=== PATIENT | female | born 1945 | race Caucasian/White ===

== ENCOUNTER → 2017-02-21 | Outpatient (CLI) | payer OTHER | END | disposition home or self-care (01) | LOC: CFH 08:24 | PROVIDERS: ATTEND Internal Medicine Critical Care Medicine | DX: Z12.2 Encounter for screening for malignant neoplasm of respiratory organs (principal); M40.295 Other kyphosis, thoracolumbar region; R91.1 Solitary pulmonary nodule; I77.810 Thoracic aortic ectasia; Z87.891 Personal history of nicotine dependence | CPT/HCPCS: 71020; G0297 ==

== ENCOUNTER → 2017-03-08 | Outpatient (CLI) | payer OTHER | END | disposition home or self-care (01) | LOC: PETCFH 09:14 | PROVIDERS: ATTEND Internal Medicine Critical Care Medicine | DX: R91.1 Solitary pulmonary nodule (principal) | CPT/HCPCS: 78815; A9552 ==

== ENCOUNTER 2017-04-21 10:53 | Emergency (ER) | payer OTHER ==
[~2017-04-21] VITALS: Ht 170.2 cm; Wt 114.0 kg
[2017-04-21] MEDS ORDERED: SODIUM CHLORIDE FLUSH 10ML SYR IVF ONE (12:00)
[2017-04-21 12:13] LABS: HEMATOCRIT 44.8 % (34.6-47.8); HEMOGLOBIN 14.5 g/dL (11.7-16.4); WHITE BLOOD COUNT 7.1 x10^3/uL (3.4-10)
[2017-04-21 12:23] VITALS: BP 158/81
[2017-04-21 12:27] LABS: BLOOD UREA NITROGEN 16 mg/dL (7-18)
[2017-04-21 12:41] LABS: ASPARTATE AMINO TRANSFERASE 20 U/L (15-37)
== END 2017-04-21 13:05 | disposition home or self-care (01) ==
LOC: ED 11:20
DX: R10.32 Left lower quadrant pain (principal); G89.29 Other chronic pain; E78.5 Hyperlipidemia, unspecified; J44.9 Chronic obstructive pulmonary disease, unspecified; E78.00 Pure hypercholesterolemia, unspecified; Z87.891 Personal history of nicotine dependence
CPT/HCPCS: 36415; 74022; 80053; 83690; 85025; 85610; 93005; 99285

== ENCOUNTER → 2017-05-06 | Outpatient (CLI) | payer OTHER | END | disposition home or self-care (01) | LOC: CFH 09:17 | PROVIDERS: ATTEND Internal Medicine Cardiovascular Disease | DX: I08.0 Rheumatic disorders of both mitral and aortic valves (principal); E78.5 Hyperlipidemia, unspecified; I71.2 Thoracic aortic aneurysm, without rupture | CPT/HCPCS: 93306 ==

== ENCOUNTER 2017-05-09 06:04 | Day surgery (SDC) | payer OTHER ==
[~2017-05-09] VITALS: Ht 170.2 cm; Wt 112.3 kg
[2017-05-09] MEDS ORDERED: SODIUM CHLORIDE 0.9% 1,000 ML IV SCH (07:09)
[2017-05-09 07:31] VITALS: BP 154/92
[2017-05-09] MEDS ORDERED: FLUT1BLS INH (07:37)
[2017-05-09] MEDS ORDERED: ALBU18HF INH (07:37)
[2017-05-09] MEDS ORDERED: FENO54TA17 PO (07:37)
[2017-05-09] MEDS ORDERED: ATOR40TA78 PO (07:37)
[2017-05-09] MEDS ORDERED: ASPI-496 PO (07:38)
[2017-05-09] MEDS ORDERED: NALOXONE 1 MG/ML, 2ML ONE (08:55)
[2017-05-09] MEDS ORDERED: MIDAZOLAM 1 MG/ML, 5ML ONE (08:55)
[2017-05-09] MEDS ORDERED: FLUMAZENIL 0.1 MG/1 ML, 5ML ONE (08:55)
[2017-05-09] MEDS ORDERED: FENTANYL PF 100 MCG/2ML ONE (08:55)
[2017-05-09] MEDS ORDERED: LIDOCAINE 1%, 20ML ONE (09:29)
== END 2017-05-09 12:55 | disposition home or self-care (01) ==
LOC: OUT 06:04
PROVIDERS: ATTEND Internal Medicine Critical Care Medicine
DX: C34.11 Malignant neoplasm of upper lobe, right bronchus or lung (principal); M89.8X2 Other specified disorders of bone, upper arm; F41.9 Anxiety disorder, unspecified; F32.9 Major depressive disorder, single episode, unspecified; I10 Essential (primary) hypertension; J44.9 Chronic obstructive pulmonary disease, unspecified; Z87.891 Personal history of nicotine dependence
CPT/HCPCS: 20220; 32405; 71010; 77012; 88305; 88307; 88311; 88342; 99156; 99157; J2250; J3010; J3490; J7030; G0461; J2310

== ENCOUNTER 2017-07-24 05:01 | Emergency (ER) | payer OTHER ==
[~2017-07-24 05:01] MED LIST: ALBU18HF INH; ASPI-496 PO; ATOR40TA78 PO; CHOL2000 PO; FENO54TA17 PO; FLUT1BLS INH
[2017-07-24] MEDS ORDERED: SODIUM CHLORIDE 0.9% 1,000 ML IV ONE (05:49)
[2017-07-24] MEDS ORDERED: morphine SULFATE 10 MG/ML, 1ML ONE (05:51)
[2017-07-24] MEDS ORDERED: ONDANSETRON 2MG/ML, 2ML ONE (05:51)
[2017-07-24 05:56] LABS: HEMATOCRIT 43.5 % (34.6-47.8); WHITE BLOOD COUNT 6.7 x10^3/uL (3.4-10)
[2017-07-24] MEDS ORDERED: MORPHINE SULFATE 4 MG/ML, 1ML IVPush PRN (06:00)
[2017-07-24] MEDS ORDERED: ONDANSETRON 2MG/ML, 2ML IVPush ONE (06:00)
[2017-07-24 06:10] LABS: ASPARTATE AMINO TRANSFERASE 16 U/L (15-37); BLOOD UREA NITROGEN 36 mg/dL (7-18)
[2017-07-24] MEDS ORDERED: PLEASE ENTER HEIGHT AND WEIGHT MC SCH (08:00)
[2017-07-24] MEDS ORDERED: SODIUM CHLORIDE 0.9% 1,000ML IVBOLUS ONE (08:00)
[2017-07-24 08:15] VITALS: BP 110/72
[2017-07-24 09:13] LABS: PATH.CAST-FLAG NOT PRESENT; SPERM-FLAG NOT PRESENT; SRC-FLAG NOT PRESENT; XTAL-FLAG NOT PRESENT; YLC-FLAG NOT PRESENT
== END 2017-07-24 11:07 | disposition home or self-care (01) ==
LOC: ED 05:32
DX: R10.32 Left lower quadrant pain (principal); R10.12 Left upper quadrant pain; C56.9 Malignant neoplasm of unspecified ovary; C78.00 Secondary malignant neoplasm of unspecified lung; E78.5 Hyperlipidemia, unspecified; J44.9 Chronic obstructive pulmonary disease, unspecified; M19.90 Unspecified osteoarthritis, unspecified site; Z90.49 Acquired absence of other specified parts of digestive tract
CPT/HCPCS: 36415; 74020; 80053; 81001; 83605; 83690; 85025; 85610; 87086; 96361; 96374; 96375; 99285; J2405; J7030

== ENCOUNTER 2017-07-29 10:22 | Emergency (ER) | payer OTHER ==
[~2017-07-29] VITALS: Ht 167.6 cm; Wt 106.0 kg
[~2017-07-29 10:22] MED LIST changes: +HYDR-3237 PO; +LISI-170 PO
[2017-07-29] MEDS ORDERED: DIPHENHYDRAMINE 25 MG CAPSULE PO ONE (12:00)
[2017-07-29 12:56] VITALS: BP 143/73
== END 2017-07-29 13:40 | disposition home or self-care (01) ==
LOC: ED 12:32
DX: T50.995A Adverse effect of other drugs, medicaments and biological substances, initial encounter (principal); Y92.89 Other specified places as the place of occurrence of the external cause; J44.9 Chronic obstructive pulmonary disease, unspecified; E78.00 Pure hypercholesterolemia, unspecified; E78.5 Hyperlipidemia, unspecified; Z85.118 Personal history of other malignant neoplasm of bronchus and lung
CPT/HCPCS: 99283

== ENCOUNTER → 2017-08-14 | Outpatient (CLI) | payer OTHER ==
[~2017-08-14] MED LIST changes: +OMNIPAQUE 350 MG/ML, 100ML BOTTLE ONE
== END | disposition home or self-care (01) ==
LOC: CFH 10:34
PROVIDERS: ATTEND Specialist
DX: I26.99 Other pulmonary embolism without acute cor pulmonale (principal); C78.00 Secondary malignant neoplasm of unspecified lung
CPT/HCPCS: 71275; Q9967

== ENCOUNTER 2017-09-03 13:59 | Inpatient (IN) | payer OTHER ==
[2017-09-03] VITALS (11 sets, daily range): BP systolic 88–126; BP diastolic 46–73
[~2017-09-03] VITALS: Ht 167.6 cm; Wt 105.0 kg
[~2017-09-03 13:59] MED LIST changes: -OMNIPAQUE 350 MG/ML, 100ML BOTTLE ONE; +POTA10TA11 PO; +POTA99TA24 PO; +WARF4TAB PO
[2017-09-03] MEDS ORDERED: SODIUM CHLORIDE 0.9% 1,000ML IVBOLUS ONE (14:30)
[2017-09-03] MEDS ORDERED: SODIUM CHLORIDE FLUSH 10ML SYR IVF ONE (14:30)
[2017-09-03 14:39] LABS: BASOPHILS # (AUTO) 0.02 x10^3/uL (0-0.1); BASOPHILS % (AUTO) 0 % (0-1); EOSINOPHILS # (AUTO) 0.01 x10^3/uL (0-0.4); EOSINOPHILS % (AUTO) 0 % (1-7); LYMPHOCYTES # (AUTO) 4.34 x10^3/uL (1-3.4); LYMPHOCYTES % (AUTO) 53 % (22-44); MD NO; MEAN CORPUSCULAR HEMOGLOBIN 31.5 pg (27.0-34.8); MEAN CORPUSCULAR HGB CONC 33.9 g/dL (32.4-35.8); MEAN CORPUSCULAR VOLUME 92.7 fL (80-100); MEAN PLATELET VOLUME 9.3 fL (7.4-10.4); MONOCYTES # (AUTO) 0.04 x10^3/uL (0.2-0.8); MONOCYTES % (AUTO) 0 % (2-9); NEUTROPHILS # (AUTO) 3.85 x10^3/uL (1.8-6.8); NEUTROPHILS % (AUTO) 47 % (42-75); PLATELET COUNT 288 x10^3/uL (130-400); RED BLOOD COUNT 4.36 x10^6/uL (3.82-5.3); RED CELL DISTRIBUTION WIDTH 14.8 % (9.6-15.2)
[2017-09-03 14:45] LABS: ALBUMIN 3.4 g/dL (3.4-5.0); ANION GAP 14 mmol/L (5-15); CALCIUM 9.3 mg/dL (8.5-10.1); CHLORIDE 95 mmol/L (98-107)
[2017-09-03 14:48] LABS: ALANINE AMINOTRANSFERASE 37 U/L (12-78); ALKALINE PHOSPHATASE 55 U/L (45-117); BILIRUBIN,TOTAL 1.1 mg/dL (0.2-1.0); CREATININE 1.62 mg/dL (0.55-1.02); TOTAL PROTEIN 7.2 g/dL (6.4-8.2)
[2017-09-03 15:00] LABS: INTERNATIONAL NORMALIZED RATIO 8.6 (0.93-1.1); PROTHROMBIN TIME 85.7 Seconds (9.6-11.5)
[2017-09-03] MEDS ORDERED: PHYTONADIONE 10 MG in SODIUM CHLORIDE 0.9% 50 ML IV ONE (15:30)
[2017-09-03] MEDS ORDERED: ASPI-496 PO (15:56)
[2017-09-03] MEDS ORDERED: CHOL100011 PO (15:56)
[2017-09-03] MEDS ORDERED: MULT-658 PO (15:56)
[2017-09-03] MEDS ORDERED: CALCIUM PO (15:56)
[2017-09-03] MEDS ORDERED: LISI-170 PO (15:56)
[2017-09-03] MEDS ORDERED: FLUT9.9S NAS (15:56)
[2017-09-03] MEDS ORDERED: WARF4TAB7 PO (15:56)
[2017-09-03] MEDS ORDERED: FLUT1BLS INH (15:56)
[2017-09-03] MEDS ORDERED: PANTOPRAZOLE 80 MG in SODIUM CHLORIDE 0.9% 50 ML IVPB ONE (17:25)
[2017-09-03] MEDS ORDERED: ESOMEPRAZOLE SODIUM 80 MG in SODIUM CHLORIDE 0.9% 100 ML IV ONE (18:00)
[2017-09-03] MEDS ORDERED: SODIUM CHLORIDE 0.9% 1,000 ML IV SCH ×2 (19:00→19:03)
[2017-09-03] MEDS ORDERED: SODIUM CHLORIDE 0.9%, 500ML IVBOLUS ONE (19:00)
[2017-09-03] MEDS ORDERED: OXYcodone IR 5MG TABLET PO PRN (22:00)
[2017-09-03] MEDS ORDERED: SODIUM CHLORIDE 0.45% 1,000 ML IV SCH (22:00)
[2017-09-03] MEDS ORDERED: ALBUTEROL SULFATE 2.5 MG/3 ML NPPB PRN (22:00)
[2017-09-03 22:36] LABS: BASOPHILS # (AUTO) 0.01 x10^3/uL (0-0.1); BASOPHILS % (AUTO) 0 % (0-1); EOSINOPHILS # (AUTO) 0.01 x10^3/uL (0-0.4); EOSINOPHILS % (AUTO) 0 % (1-7); LYMPHOCYTES # (AUTO) 2.37 x10^3/uL (1-3.4); LYMPHOCYTES % (AUTO) 42 % (22-44); MD NO; MEAN CORPUSCULAR HGB CONC 34.2 g/dL (32.4-35.8); MEAN CORPUSCULAR VOLUME 93.6 fL (80-100); MEAN PLATELET VOLUME 9.4 fL (7.4-10.4); MONOCYTES # (AUTO) 0.05 x10^3/uL (0.2-0.8); MONOCYTES % (AUTO) 1 % (2-9); NEUTROPHILS # (AUTO) 3.16 x10^3/uL (1.8-6.8); NEUTROPHILS % (AUTO) 56 % (42-75); PLATELET COUNT 188 x10^3/uL (130-400); RED BLOOD COUNT 3.04 x10^6/uL (3.82-5.3); RED CELL DISTRIBUTION WIDTH 15.1 % (9.6-15.2)
[2017-09-03] MEDS: ATORVASTATIN 40 MG TABLET PO SCH (23:16)
[2017-09-04] MEDS: SODIUM CHLORIDE 0.45% 1,000 ML IV SCH ×4 (00:08→20:17)
[2017-09-04] MEDS ORDERED: OXYcodone IR 5MG TABLET ONE (02:11)
[2017-09-04] MEDS: OXYcodone IR 5MG TABLET PO PRN ×3 (02:13→23:26)
[2017-09-04 02:18] VITALS: BP 122/74
[2017-09-04 06:23] LABS: BASOPHILS # (AUTO) 0.02 x10^3/uL (0-0.1); BASOPHILS % (AUTO) 0 % (0-1); EOSINOPHILS # (AUTO) 0.02 x10^3/uL (0-0.4); EOSINOPHILS % (AUTO) 0 % (1-7); LYMPHOCYTES # (AUTO) 2.55 x10^3/uL (1-3.4); LYMPHOCYTES % (AUTO) 49 % (22-44); MD NO; MEAN CORPUSCULAR HEMOGLOBIN 31.8 pg (27.0-34.8); MEAN CORPUSCULAR HGB CONC 34.3 g/dL (32.4-35.8); MEAN CORPUSCULAR VOLUME 92.8 fL (80-100); MEAN PLATELET VOLUME 9.2 fL (7.4-10.4); MONOCYTES # (AUTO) 0.05 x10^3/uL (0.2-0.8); MONOCYTES % (AUTO) 1 % (2-9); NEUTROPHILS # (AUTO) 2.54 x10^3/uL (1.8-6.8); NEUTROPHILS % (AUTO) 49 % (42-75); PLATELET COUNT 184 x10^3/uL (130-400); RED BLOOD COUNT 3.17 x10^6/uL (3.82-5.3); RED CELL DISTRIBUTION WIDTH 14.9 % (9.6-15.2)
[2017-09-04 06:27] LABS: INTERNATIONAL NORMALIZED RATIO 1.12 (0.93-1.1); PROTHROMBIN TIME 11.6 Seconds (9.6-11.5)
[2017-09-04 07:56] VITALS: BP 112/71
[2017-09-04] MEDS: FLUTICASONE NASAL SPRAY 16GM NAS SCH (09:00)
[2017-09-04] MEDS: FENOFIBRATE 54 MG TABLET PO SCH (09:07)
[2017-09-04] MEDS: CALCIUM CARBONATE 500 MG TAB.CHEW PO SCH (09:07)
[2017-09-04] MEDS: CHOLECALCIFEROL 1,000 UNIT TABLET PO SCH (09:07)
[2017-09-04 13:10] VITALS: BP 117/68
[2017-09-04 20:00] VITALS: BP 147/75
[2017-09-04] MEDS: ATORVASTATIN 40 MG TABLET PO SCH (20:19)
[2017-09-05 01:07] VITALS: BP 126/73
[2017-09-05] MEDS: SODIUM CHLORIDE 0.45% 1,000 ML IV SCH (03:08)
[2017-09-05] MEDS: OXYcodone IR 5MG TABLET PO PRN ×2 (05:29→15:25)
[2017-09-05 06:01] LABS: ANION GAP 9 mmol/L (5-15); BASOPHILS # (AUTO) 0.01 x10^3/uL (0-0.1); BASOPHILS % (AUTO) 0 % (0-1); CALCIUM 8.5 mg/dL (8.5-10.1); CHLORIDE 103 mmol/L (98-107); EOSINOPHILS # (AUTO) 0.01 x10^3/uL (0-0.4); EOSINOPHILS % (AUTO) 0 % (1-7); LYMPHOCYTES # (AUTO) 1.59 x10^3/uL (1-3.4); LYMPHOCYTES % (AUTO) 35 % (22-44); MD NO; MEAN CORPUSCULAR HEMOGLOBIN 31.9 pg (27.0-34.8); MEAN CORPUSCULAR HGB CONC 34.3 g/dL (32.4-35.8); MEAN PLATELET VOLUME 9.2 fL (7.4-10.4); MONOCYTES # (AUTO) 0.14 x10^3/uL (0.2-0.8); MONOCYTES % (AUTO) 3 % (2-9); NEUTROPHILS # (AUTO) 2.77 x10^3/uL (1.8-6.8); NEUTROPHILS % (AUTO) 61 % (42-75); PLATELET COUNT 170 x10^3/uL (130-400); RED BLOOD COUNT 3.03 x10^6/uL (3.82-5.3); RED CELL DISTRIBUTION WIDTH 14.9 % (9.6-15.2)
[2017-09-05 06:02] LABS: CREATININE 0.61 mg/dL (0.55-1.02)
[2017-09-05 06:40] VITALS: BP 138/76
[2017-09-05] MEDS: NS + 20MEQ KCL 1,000 ML IV SCH ×3 (08:44→22:13)
[2017-09-05] MEDS: FLUTICASONE NASAL SPRAY 16GM NAS SCH (08:45)
[2017-09-05] MEDS: FENOFIBRATE 54 MG TABLET PO SCH (08:45)
[2017-09-05] MEDS: POTASSIUM CHLORIDE 20 MEQ TAB.ER.PRT PO SCH ×2 (08:45→15:25)
[2017-09-05] MEDS: CHOLECALCIFEROL 1,000 UNIT TABLET PO SCH (08:45)
[2017-09-05] MEDS: CALCIUM CARBONATE 500 MG TAB.CHEW PO SCH (08:46)
[2017-09-05] MEDS: ONDANSETRON 2MG/ML, 2ML IVPush PRN ×2 (10:15→21:23)
[2017-09-05 13:09] VITALS: BP 131/80
[2017-09-05] MEDS ORDERED: MOVIPREP POWDER 1 PREP KIT PO ONE (15:00)
[2017-09-05 19:19] VITALS: BP 168/81
[2017-09-05 20:21] VITALS: BP 143/82
[2017-09-05] MEDS: ATORVASTATIN 40 MG TABLET PO SCH (20:27)
[2017-09-06 00:13] VITALS: BP 142/93
[2017-09-06 01:59] VITALS: BP 148/92
[2017-09-06] MEDS: NS + 20MEQ KCL 1,000 ML IV SCH ×3 (04:29→22:03)
[2017-09-06 06:01] LABS: BASOPHILS # (AUTO) 0.01 x10^3/uL (0-0.1); BASOPHILS % (AUTO) 0 % (0-1); EOSINOPHILS # (AUTO) 0.01 x10^3/uL (0-0.4); EOSINOPHILS % (AUTO) 0 % (1-7); LYMPHOCYTES # (AUTO) 1.25 x10^3/uL (1-3.4); LYMPHOCYTES % (AUTO) 29 % (22-44); MD NO; MEAN CORPUSCULAR HGB CONC 34.2 g/dL (32.4-35.8); MEAN CORPUSCULAR VOLUME 93.6 fL (80-100); MEAN PLATELET VOLUME 8.9 fL (7.4-10.4); MONOCYTES # (AUTO) 0.32 x10^3/uL (0.2-0.8); MONOCYTES % (AUTO) 7 % (2-9); NEUTROPHILS # (AUTO) 2.77 x10^3/uL (1.8-6.8); NEUTROPHILS % (AUTO) 64 % (42-75); PLATELET COUNT 200 x10^3/uL (130-400); RED BLOOD COUNT 3.08 x10^6/uL (3.82-5.3); RED CELL DISTRIBUTION WIDTH 14.9 % (9.6-15.2)
[2017-09-06 06:09] LABS: ALBUMIN 3.2 g/dL (3.4-5.0); ANION GAP 8 mmol/L (5-15); CALCIUM 8.7 mg/dL (8.5-10.1); CHLORIDE 109 mmol/L (98-107)
[2017-09-06 06:14] LABS: ALANINE AMINOTRANSFERASE 25 U/L (12-78); ALKALINE PHOSPHATASE 54 U/L (45-117); BILIRUBIN,TOTAL 0.7 mg/dL (0.2-1.0); CREATININE 0.64 mg/dL (0.55-1.02); TOTAL PROTEIN 6.9 g/dL (6.4-8.2)
[2017-09-06 07:53] VITALS: BP 143/78
[2017-09-06] MEDS: POTASSIUM CHLORIDE 20 MEQ TAB.ER.PRT PO SCH ×2 (08:00→16:26)
[2017-09-06] MEDS: CALCIUM CARBONATE 500 MG TAB.CHEW PO SCH (08:08)
[2017-09-06] MEDS: FENOFIBRATE 54 MG TABLET PO SCH (08:08)
[2017-09-06] MEDS: CHOLECALCIFEROL 1,000 UNIT TABLET PO SCH (08:08)
[2017-09-06] MEDS: FLUTICASONE NASAL SPRAY 16GM NAS SCH (09:11)
[2017-09-06] MEDS ORDERED: PROPOFOL 10 MG/ML, 20ML ONE (14:53)
[2017-09-06] MEDS ORDERED: ACETAMINOPHEN 325 MG TABLET PO PRN (15:30)
[2017-09-06] MEDS ORDERED: FENTANYL PF 100 MCG/2ML IV PRN (15:30)
[2017-09-06] MEDS ORDERED: HYDROmorphone 1 MG/ML, 1ML IV PRN (15:30)
[2017-09-06] MEDS ORDERED: OXYcodone 5 MG/5 ML ORAL.SOL UDC PO PRN (15:30)
[2017-09-06] MEDS ORDERED: HYDROcodone/APAP 7.5-325MG/15ML UDC PO PRN (15:30)
[2017-09-06] MEDS ORDERED: LABETALOL 5MG/ML, 20ML IV PRN (15:30)
[2017-09-06] MEDS ORDERED: ONDANSETRON 2MG/ML, 2ML IVPush PRN (15:30)
[2017-09-06 19:23] VITALS: BP 142/82
[2017-09-06] MEDS: ATORVASTATIN 40 MG TABLET PO SCH (20:56)
[2017-09-07] MEDS: OXYcodone IR 5MG TABLET PO PRN ×3 (02:11→16:25)
[2017-09-07] MEDS: NS + 20MEQ KCL 1,000 ML IV SCH ×3 (03:52→17:50)
[2017-09-07 03:54] VITALS: BP 120/74
[2017-09-07 05:04] LABS: INTERNATIONAL NORMALIZED RATIO 1.06 (0.93-1.1)
[2017-09-07 05:09] LABS: ANION GAP 6 mmol/L (5-15); CALCIUM 7.9 mg/dL (8.5-10.1); CHLORIDE 110 mmol/L (98-107); CREATININE 0.51 mg/dL (0.55-1.02)
[2017-09-07 05:21] LABS: MEAN CORPUSCULAR HEMOGLOBIN 32.1 pg (27.0-34.8); MEAN CORPUSCULAR HGB CONC 34.1 g/dL (32.4-35.8); MEAN CORPUSCULAR VOLUME 94.1 fL (80-100); MEAN PLATELET VOLUME 8.9 fL (7.4-10.4); PLATELET COUNT 180 x10^3/uL (130-400); RED BLOOD COUNT 2.68 x10^6/uL (3.82-5.3); RED CELL DISTRIBUTION WIDTH 14.9 % (9.6-15.2)
[2017-09-07 05:47] LABS: MD YES
[2017-09-07 05:52] LABS: LYMPHS% (MANUAL) 55 % (22-44); MONOS#(MANUAL) 0.15 x10^3/uL (0.3-2.7); MONOS% (MANUAL) 5 % (2-9); REACTIVE LYMPHS # (MANUAL) 0.03 x10^3/uL (0-0); REACTIVE LYMPHS % (MANUAL) 1 % (0-0); SEG#(MANUAL) 1.13 x10^3/uL (1.8-6.8); SEGS% (MANUAL) 39 % (42-75)
[2017-09-07 05:53] LABS: <PLATELET ESTIMATE> ADEQUATE; <PLT MORPHOLOGY> NORMAL PLT MORPH; ANISOCYTOSIS 1+; POLYCHROMASIA 1+
[2017-09-07 07:38] VITALS: BP 148/79
[2017-09-07] MEDS: FLUTICASONE NASAL SPRAY 16GM NAS SCH (08:08)
[2017-09-07] MEDS: POTASSIUM CHLORIDE 20 MEQ TAB.ER.PRT PO SCH ×2 (08:09→16:25)
[2017-09-07] MEDS: FENOFIBRATE 54 MG TABLET PO SCH (08:09)
[2017-09-07] MEDS: CHOLECALCIFEROL 1,000 UNIT TABLET PO SCH (08:09)
[2017-09-07] MEDS: CALCIUM CARBONATE 500 MG TAB.CHEW PO SCH (08:09)
[2017-09-07 14:30] VITALS: BP 123/75
[2017-09-07] MEDS: WARFARIN 5 MG TABLET PO-COUM SCH (17:52)
[2017-09-07 20:10] VITALS: BP 148/79
[2017-09-07] MEDS: ATORVASTATIN 40 MG TABLET PO SCH (20:28)
[2017-09-08 00:08] VITALS: BP 138/79
[2017-09-08] MEDS: NS + 20MEQ KCL 1,000 ML IV SCH ×3 (00:51→20:11)
[2017-09-08] MEDS: OXYcodone IR 5MG TABLET PO PRN ×3 (03:36→17:45)
[2017-09-08 04:41] LABS: INTERNATIONAL NORMALIZED RATIO 1.13 (0.93-1.1); PROTHROMBIN TIME 11.7 Seconds (9.6-11.5)
[2017-09-08 04:42] LABS: MEAN CORPUSCULAR HEMOGLOBIN 31.7 pg (27.0-34.8); MEAN CORPUSCULAR HGB CONC 34.1 g/dL (32.4-35.8); MEAN PLATELET VOLUME 8.3 fL (7.4-10.4); PLATELET COUNT 214 x10^3/uL (130-400); RED BLOOD COUNT 2.82 x10^6/uL (3.82-5.3); RED CELL DISTRIBUTION WIDTH 15.6 % (9.6-15.2)
[2017-09-08 05:52] LABS: MD YES
[2017-09-08 06:02] LABS: BAND#(MANUAL) 0.05 x10^3/uL; BANDS%(MANUAL) 2 % (0-7); BASOS#(MANUAL) 0.02 x10^3/uL (0-0.1); BASOS% (MANUAL) 1 % (0-1); LYMPH#(MANUAL) 1.24 x10^3/uL (1-3.4); LYMPHS% (MANUAL) 54 % (22-44); MONOS#(MANUAL) 0.41 x10^3/uL (0.3-2.7); MONOS% (MANUAL) 18 % (2-9); REACTIVE LYMPHS # (MANUAL) 0.09 x10^3/uL (0-0); REACTIVE LYMPHS % (MANUAL) 4 % (0-0); SEG#(MANUAL) 0.48 x10^3/uL (1.8-6.8); SEGS% (MANUAL) 21 % (42-75)
[2017-09-08 06:03] LABS: <PLATELET ESTIMATE> ADEQUATE; ANISOCYTOSIS 1+; POLYCHROMASIA 1+
[2017-09-08 06:04] LABS: OVALOCYTES 1+
[2017-09-08 06:05] LABS: <PLT MORPHOLOGY> NORMAL PLT MORPH
[2017-09-08 07:22] VITALS: BP 149/81
[2017-09-08] MEDS ORDERED: OXYcodone/APAP 5/325MG TABLET ONE (10:56)
[2017-09-08] MEDS: FENOFIBRATE 54 MG TABLET PO SCH (11:07)
[2017-09-08] MEDS: FLUTICASONE NASAL SPRAY 16GM NAS SCH (11:07)
[2017-09-08] MEDS: POTASSIUM CHLORIDE 20 MEQ TAB.ER.PRT PO SCH ×2 (11:08→17:45)
[2017-09-08] MEDS: CHOLECALCIFEROL 1,000 UNIT TABLET PO SCH (11:08)
[2017-09-08] MEDS: CALCIUM CARBONATE 500 MG TAB.CHEW PO SCH (11:14)
[2017-09-08 13:09] LABS: CLOSTRIDIUM DIFFICILE ANTIGEN NEGATIVE; CLOSTRIDIUM DIFFICILE TOXIN NEGATIVE (Negative)
[2017-09-08 13:41] VITALS: BP 142/72
[2017-09-08] MEDS: WARFARIN 5 MG TABLET PO-COUM SCH (18:26)
[2017-09-08 20:03] VITALS: BP 128/77
[2017-09-08] MEDS: ATORVASTATIN 40 MG TABLET PO SCH (21:24)
[2017-09-09] MEDS: OXYcodone IR 5MG TABLET PO PRN ×4 (00:05→21:00)
[2017-09-09 01:24] VITALS: BP 135/80
[2017-09-09] MEDS: NS + 20MEQ KCL 1,000 ML IV SCH ×3 (02:43→23:07)
[2017-09-09 04:43] LABS: INTERNATIONAL NORMALIZED RATIO 1.56 (0.93-1.1); PROTHROMBIN TIME 16.1 Seconds (9.6-11.5)
[2017-09-09 04:46] LABS: MEAN CORPUSCULAR HEMOGLOBIN 32.6 pg (27.0-34.8); MEAN CORPUSCULAR VOLUME 93.2 fL (80-100); PLATELET COUNT 209 x10^3/uL (130-400); RED BLOOD COUNT 2.74 x10^6/uL (3.82-5.3); RED CELL DISTRIBUTION WIDTH 15.6 % (9.6-15.2)
[2017-09-09 05:53] LABS: MD YES
[2017-09-09 05:57] LABS: EOS#(MANUAL) 0.03 x10^3/uL (0.0-0.4); EOS% (MANUAL) 1 % (1-7); REACTIVE LYMPHS # (MANUAL) 0.03 x10^3/uL (0-0); REACTIVE LYMPHS % (MANUAL) 1 % (0-0)
[2017-09-09 05:58] LABS: SEGS% (MANUAL) 16 % (42-75)
[2017-09-09 05:59] LABS: ANISOCYTOSIS 1+; LYMPH#(MANUAL) 2.05 x10^3/uL (1-3.4); LYMPHS% (MANUAL) 66 % (22-44); MONOS% (MANUAL) 16 % (2-9); POLYCHROMASIA 1+
[2017-09-09 06:00] LABS: <PLATELET ESTIMATE> ADEQUATE; <PLT MORPHOLOGY> NORMAL PLT MORPH
[2017-09-09 07:51] VITALS: BP 151/85
[2017-09-09] MEDS: FLUTICASONE NASAL SPRAY 16GM NAS SCH (08:36)
[2017-09-09] MEDS: POTASSIUM CHLORIDE 20 MEQ TAB.ER.PRT PO SCH ×2 (08:43→17:23)
[2017-09-09] MEDS: CHOLECALCIFEROL 1,000 UNIT TABLET PO SCH (08:43)
[2017-09-09] MEDS: CALCIUM CARBONATE 500 MG TAB.CHEW PO SCH (08:43)
[2017-09-09] MEDS: FENOFIBRATE 54 MG TABLET PO SCH (08:43)
[2017-09-09] MEDS ORDERED: ACETAMINOPHEN 500 MG TABLET PO PRN (10:00)
[2017-09-09] MEDS: TBO-FILGRASTIM 480 MCG/0.8 ML SQ SCH (12:33)
[2017-09-09 12:50] VITALS: BP 145/84
[2017-09-09] MEDS: ONDANSETRON 2MG/ML, 2ML IVPush PRN (14:35)
[2017-09-09] MEDS ORDERED: WARFARIN 2.5 MG TABLET PO-COUM ONE (18:00)
[2017-09-09 20:06] VITALS: BP 138/78
[2017-09-09] MEDS: ATORVASTATIN 40 MG TABLET PO SCH (20:59)
[2017-09-10 02:59] VITALS: BP 136/83
[2017-09-10 04:40] LABS: INTERNATIONAL NORMALIZED RATIO 2.82 (0.93-1.1); PROTHROMBIN TIME 28.7 Seconds (9.6-11.5)
[2017-09-10 04:43] LABS: MEAN CORPUSCULAR HGB CONC 34.5 g/dL (32.4-35.8); MEAN CORPUSCULAR VOLUME 92.8 fL (80-100); MEAN PLATELET VOLUME 8.2 fL (7.4-10.4); PLATELET COUNT 195 x10^3/uL (130-400); RED BLOOD COUNT 2.72 x10^6/uL (3.82-5.3); RED CELL DISTRIBUTION WIDTH 15.9 % (9.6-15.2)
[2017-09-10 04:44] LABS: ANION GAP 10 mmol/L (5-15); CALCIUM 7.9 mg/dL (8.5-10.1); CHLORIDE 111 mmol/L (98-107)
[2017-09-10 04:45] LABS: CREATININE 0.55 mg/dL (0.55-1.02)
[2017-09-10 05:06] LABS: MD YES
[2017-09-10 05:09] LABS: BAND#(MANUAL) 0.22 x10^3/uL; BANDS%(MANUAL) 4 % (0-7); BASOS#(MANUAL) 0.11 x10^3/uL (0-0.1); BASOS% (MANUAL) 2 % (0-1); LYMPHS% (MANUAL) 37 % (22-44); MONOS#(MANUAL) 0.81 x10^3/uL (0.3-2.7); MONOS% (MANUAL) 15 % (2-9); SEG#(MANUAL) 2.27 x10^3/uL (1.8-6.8); SEGS% (MANUAL) 42 % (42-75)
[2017-09-10 05:10] LABS: <PLATELET ESTIMATE> ADEQUATE; <PLT MORPHOLOGY> NORMAL PLT MORPH; ANISOCYTOSIS 1+; POLYCHROMASIA 1+
[2017-09-10] MEDS: OXYcodone IR 5MG TABLET PO PRN ×3 (05:16→17:06)
[2017-09-10 07:34] VITALS: BP 149/86
[2017-09-10] MEDS: POTASSIUM CHLORIDE 20 MEQ TAB.ER.PRT PO SCH ×2 (09:03→17:05)
[2017-09-10] MEDS: CHOLECALCIFEROL 1,000 UNIT TABLET PO SCH (09:03)
[2017-09-10] MEDS: FENOFIBRATE 54 MG TABLET PO SCH (09:04)
[2017-09-10] MEDS: CALCIUM CARBONATE 500 MG TAB.CHEW PO SCH (09:04)
[2017-09-10] MEDS: TBO-FILGRASTIM 480 MCG/0.8 ML SQ SCH (09:04)
[2017-09-10] MEDS: FLUTICASONE NASAL SPRAY 16GM NAS SCH (09:04)
[2017-09-10] MEDS ORDERED: LOPERAMIDE 2 MG CAPSULE PO PRN (09:30)
[2017-09-10] MEDS: LACTOBACILLUS CHEW TABLET PO SCH (10:44)
[2017-09-10 14:36] VITALS: BP 146/79
[2017-09-10] MEDS ORDERED: WARFARIN 1 MG TABLET PO-COUM ONE (18:00)
[2017-09-10 20:46] VITALS: BP 128/80
[2017-09-10] MEDS: ATORVASTATIN 40 MG TABLET PO SCH (21:46)
[2017-09-11 02:58] VITALS: BP 147/81
[2017-09-11 04:25] LABS: BASOPHILS # (AUTO) 0.06 x10^3/uL (0-0.1); BASOPHILS % (AUTO) 1 % (0-1); EOSINOPHILS # (AUTO) 0.03 x10^3/uL (0-0.4); EOSINOPHILS % (AUTO) 0 % (1-7); LYMPHOCYTES # (AUTO) 2.16 x10^3/uL (1-3.4); LYMPHOCYTES % (AUTO) 23 % (22-44); MD NO; MEAN CORPUSCULAR HEMOGLOBIN 31.6 pg (27.0-34.8); MEAN CORPUSCULAR HGB CONC 33.7 g/dL (32.4-35.8); MEAN CORPUSCULAR VOLUME 93.6 fL (80-100); MONOCYTES # (AUTO) 1.24 x10^3/uL (0.2-0.8); MONOCYTES % (AUTO) 13 % (2-9); NEUTROPHILS # (AUTO) 5.81 x10^3/uL (1.8-6.8); NEUTROPHILS % (AUTO) 63 % (42-75); PLATELET COUNT 215 x10^3/uL (130-400); RED BLOOD COUNT 2.77 x10^6/uL (3.82-5.3); RED CELL DISTRIBUTION WIDTH 16.2 % (9.6-15.2)
[2017-09-11 04:32] LABS: INTERNATIONAL NORMALIZED RATIO 3.38 (0.93-1.1); PROTHROMBIN TIME 34.3 Seconds (9.6-11.5)
[2017-09-11 07:06] VITALS: BP_SYST 144; BP_DIAS 8; BP_DIAS 84
[2017-09-11] MEDS: ONDANSETRON 2MG/ML, 2ML IVPush PRN (09:09)
[2017-09-11] MEDS: LACTOBACILLUS CHEW TABLET PO SCH (11:47)
[2017-09-11] MEDS: CHOLECALCIFEROL 1,000 UNIT TABLET PO SCH (11:47)
[2017-09-11] MEDS: FLUTICASONE NASAL SPRAY 16GM NAS SCH (11:47)
[2017-09-11] MEDS: FENOFIBRATE 54 MG TABLET PO SCH (11:48)
[2017-09-11] MEDS: POTASSIUM CHLORIDE 20 MEQ TAB.ER.PRT PO SCH ×2 (11:48→16:11)
[2017-09-11] MEDS: CALCIUM CARBONATE 500 MG TAB.CHEW PO SCH (11:50)
[2017-09-11 15:07] VITALS: BP 28/74
[2017-09-11] MEDS: OXYcodone IR 5MG TABLET PO PRN (16:10)
[2017-09-11 19:44] VITALS: BP 155/79
[2017-09-11] MEDS: ATORVASTATIN 40 MG TABLET PO SCH (20:50)
[2017-09-12 01:08] VITALS: BP 126/78
[2017-09-12 08:22] LABS: INTERNATIONAL NORMALIZED RATIO 2.71 (0.93-1.1); PROTHROMBIN TIME 27.6 Seconds (9.6-11.5)
[2017-09-12 09:13] VITALS: BP 136/77
[2017-09-12] MEDS: FLUTICASONE NASAL SPRAY 16GM NAS SCH (09:58)
[2017-09-12] MEDS: POTASSIUM CHLORIDE 20 MEQ TAB.ER.PRT PO SCH ×2 (09:58→17:41)
[2017-09-12] MEDS: LACTOBACILLUS CHEW TABLET PO SCH (09:58)
[2017-09-12] MEDS: CALCIUM CARBONATE 500 MG TAB.CHEW PO SCH (09:59)
[2017-09-12] MEDS: CHOLECALCIFEROL 1,000 UNIT TABLET PO SCH (09:59)
[2017-09-12] MEDS: FENOFIBRATE 54 MG TABLET PO SCH (09:59)
[2017-09-12 12:35] VITALS: BP 144/82
[2017-09-12] MEDS: OXYcodone IR 5MG TABLET PO PRN (14:16)
[2017-09-12] MEDS ORDERED: WARFARIN 1 MG TABLET PO-COUM ONE (18:00)
[2017-09-12 20:03] VITALS: BP 121/71
[2017-09-12] MEDS: ATORVASTATIN 40 MG TABLET PO SCH (21:08)
[2017-09-13 02:56] VITALS: BP 124/77
[2017-09-13 04:48] LABS: INTERNATIONAL NORMALIZED RATIO 1.89 (0.93-1.1); PROTHROMBIN TIME 19.4 Seconds (9.6-11.5)
[2017-09-13 08:16] VITALS: BP 148/84
[2017-09-13] MEDS: POTASSIUM CHLORIDE 20 MEQ TAB.ER.PRT PO SCH (09:07)
[2017-09-13] MEDS: LACTOBACILLUS CHEW TABLET PO SCH (09:07)
[2017-09-13] MEDS: FENOFIBRATE 54 MG TABLET PO SCH (09:07)
[2017-09-13] MEDS: CHOLECALCIFEROL 1,000 UNIT TABLET PO SCH (09:07)
[2017-09-13] MEDS: CALCIUM CARBONATE 500 MG TAB.CHEW PO SCH (09:07)
[2017-09-13] MEDS: FLUTICASONE NASAL SPRAY 16GM NAS SCH (09:07)
[2017-09-13] MEDS: OXYcodone IR 5MG TABLET PO PRN (09:26)
== END 2017-09-13 13:42 | disposition home or self-care (01) | DRG 813 ==
LOC: ED 15:36 → EDIP 15:37 → ED 16:20 → 3NW 21:05
PROVIDERS: ADMIT Specialist; ATTEND Specialist
PROC: 30233L1 Transfusion of Nonautologous Fresh Plasma into Peripheral Vein, Percutaneous Approach (ICD-10-PCS; principal; 2017-09-03)
PROC: 30233K1 Transfusion of Nonautologous Frozen Plasma into Peripheral Vein, Percutaneous Approach (ICD-10-PCS; 2017-09-03)
PROC: 0DJD8ZZ Inspection of Lower Intestinal Tract, Via Natural or Artificial Opening Endoscopic (ICD-10-PCS; 2017-09-06)
DX: D68.32 Hemorrhagic disorder due to extrinsic circulating anticoagulants (principal); I95.9 Hypotension, unspecified; D70.1 Agranulocytosis secondary to cancer chemotherapy; K57.31 Diverticulosis of large intestine without perforation or abscess with bleeding; C56.9 Malignant neoplasm of unspecified ovary; C57.7 Malignant neoplasm of other specified female genital organs; D64.9 Anemia, unspecified; K62.5 Hemorrhage of anus and rectum; E78.00 Pure hypercholesterolemia, unspecified; E86.0 Dehydration; T45.515A Adverse effect of anticoagulants, initial encounter; E78.5 Hyperlipidemia, unspecified; F17.200 Nicotine dependence, unspecified, uncomplicated; I10 Essential (primary) hypertension; E87.6 Hypokalemia; J44.9 Chronic obstructive pulmonary disease, unspecified; K59.00 Constipation, unspecified; K64.4 Residual hemorrhoidal skin tags; Z79.01 Long term (current) use of anticoagulants; Z85.118 Personal history of other malignant neoplasm of bronchus and lung; Z86.711 Personal history of pulmonary embolism; Z90.49 Acquired absence of other specified parts of digestive tract; Z90.89 Acquired absence of other organs
CPT/HCPCS: 36415; 36430; 74022; 80048; 80053; 85014; 85018; 85025; 85610; 86850; 86900; 86923; 87324; 93005; 96361; 96365; 96374; J2405; J2704; J3430; J3480; J1447; J7030; J7040; P9017

== ENCOUNTER 2017-09-16 01:33 | Emergency (ER) | payer OTHER ==
[~2017-09-16] VITALS: Ht 167.6 cm; Wt 98.1 kg
[~2017-09-16 01:33] MED LIST changes: +CALCIUM PO; +CHOL100011 PO; +FLUT9.9S NAS; +MULT-658 PO; +WARF4TAB7 PO
[2017-09-16] MEDS ORDERED: SODIUM CHLORIDE 0.9% 1,000ML IVBOLUS ONE ×2 (02:30→05:00)
[2017-09-16] MEDS ORDERED: SODIUM CHLORIDE FLUSH 10ML SYR IVF ONE (02:30)
[2017-09-16 02:44] LABS: BASOPHILS # (AUTO) 0.01 x10^3/uL (0-0.1); BASOPHILS % (AUTO) 0 % (0-1); EOSINOPHILS % (AUTO) 0 % (1-7); LYMPHOCYTES # (AUTO) 1.26 x10^3/uL (1-3.4); LYMPHOCYTES % (AUTO) 27 % (22-44); MD NO; MEAN CORPUSCULAR HEMOGLOBIN 31.5 pg (27.0-34.8); MEAN CORPUSCULAR HGB CONC 33.8 g/dL (32.4-35.8); MEAN CORPUSCULAR VOLUME 93.2 fL (80-100); MEAN PLATELET VOLUME 7.8 fL (7.4-10.4); MONOCYTES # (AUTO) 0.59 x10^3/uL (0.2-0.8); MONOCYTES % (AUTO) 13 % (2-9); NEUTROPHILS # (AUTO) 2.78 x10^3/uL (1.8-6.8); NEUTROPHILS % (AUTO) 60 % (42-75); PLATELET COUNT 282 x10^3/uL (130-400); RED BLOOD COUNT 3.28 x10^6/uL (3.82-5.3); RED CELL DISTRIBUTION WIDTH 16.2 % (9.6-15.2)
[2017-09-16 02:47] LABS: INTERNATIONAL NORMALIZED RATIO 1.37 (0.93-1.1); PROTHROMBIN TIME 14.2 Seconds (9.6-11.5)
[2017-09-16 02:51] LABS: ALANINE AMINOTRANSFERASE 30 U/L (12-78); ALBUMIN 3.2 g/dL (3.4-5.0); ANION GAP 11 mmol/L (5-15); CALCIUM 8.7 mg/dL (8.5-10.1); CHLORIDE 105 mmol/L (98-107); CREATININE 0.79 mg/dL (0.55-1.02)
[2017-09-16 02:53] LABS: ALKALINE PHOSPHATASE 77 U/L (45-117); BILIRUBIN,TOTAL 0.8 mg/dL (0.2-1.0); TOTAL PROTEIN 7.4 g/dL (6.4-8.2)
[2017-09-16 04:06] LABS: MICROSCOPIC AUTO
[2017-09-16 04:09] LABS: CULTURE INDICATED? YES
[2017-09-16 06:37] VITALS: BP 122/78
== END 2017-09-16 07:29 | disposition home or self-care (01) ==
LOC: ED 02:43
DX: R53.1 Weakness (principal); R19.7 Diarrhea, unspecified; E86.0 Dehydration; I10 Essential (primary) hypertension; J44.9 Chronic obstructive pulmonary disease, unspecified; E78.5 Hyperlipidemia, unspecified; Z79.01 Long term (current) use of anticoagulants; Z87.891 Personal history of nicotine dependence; Z90.49 Acquired absence of other specified parts of digestive tract
CPT/HCPCS: 36415; 71045; 80053; 81001; 83690; 85025; 85610; 85730; 87086; 93005; 96360; 99285; J7030

== ENCOUNTER → 2017-09-20 | Outpatient (CLI) | payer OTHER ==
[~2017-09-20] MED LIST changes: +ALBU18HF IH
== END | disposition home or self-care (01) ==
LOC: RAD 11:53
PROVIDERS: ATTEND Physician Assistant
DX: M40.295 Other kyphosis, thoracolumbar region (principal); J98.6 Disorders of diaphragm
CPT/HCPCS: 71046

== ENCOUNTER 2017-10-01 21:38 | Inpatient (IN) | payer OTHER ==
[~2017-10-01] VITALS: Ht 167.6 cm; Wt 99.2 kg
[2017-10-01] MEDS ORDERED: SODIUM CHLORIDE FLUSH 10ML SYR IVF ONE (22:00)
[2017-10-01 22:05] LABS: BASOPHILS # (AUTO) 0.01 x10^3/uL (0-0.1); BASOPHILS % (AUTO) 0 % (0-1); EOSINOPHILS # (AUTO) 0.02 x10^3/uL (0-0.4); EOSINOPHILS % (AUTO) 0 % (1-7); LYMPHOCYTES # (AUTO) 2.12 x10^3/uL (1-3.4); LYMPHOCYTES % (AUTO) 53 % (22-44); MD NO; MEAN CORPUSCULAR HEMOGLOBIN 31.6 pg (27.0-34.8); MEAN CORPUSCULAR HGB CONC 33.4 g/dL (32.4-35.8); MEAN CORPUSCULAR VOLUME 94.8 fL (80-100); MEAN PLATELET VOLUME 9.1 fL (7.4-10.4); MONOCYTES # (AUTO) 0.03 x10^3/uL (0.2-0.8); MONOCYTES % (AUTO) 1 % (2-9); NEUTROPHILS % (AUTO) 45 % (42-75); PLATELET COUNT 424 x10^3/uL (130-400); RED BLOOD COUNT 3.62 x10^6/uL (3.82-5.3); RED CELL DISTRIBUTION WIDTH 17.3 % (9.6-15.2)
[2017-10-01 22:16] LABS: INTERNATIONAL NORMALIZED RATIO 3.66 (0.93-1.1); PROTHROMBIN TIME 36.8 Seconds (9.6-11.5)
[2017-10-01 22:17] LABS: ALANINE AMINOTRANSFERASE 26 U/L (12-78); ALBUMIN 3.4 g/dL (3.4-5.0); ANION GAP 12 mmol/L (5-15); CALCIUM 8.8 mg/dL (8.5-10.1); CHLORIDE 96 mmol/L (98-107); CREATININE 0.96 mg/dL (0.55-1.02)
[2017-10-01 22:21] LABS: ALKALINE PHOSPHATASE 50 U/L (45-117); BILIRUBIN,TOTAL 0.9 mg/dL (0.2-1.0); TOTAL PROTEIN 6.7 g/dL (6.4-8.2); TROPONIN I < 0.015 ng/mL (0.000-0.045)
[2017-10-01] MEDS ORDERED: SODIUM CHLORIDE 0.9% 1,000ML IVBOLUS ONE (23:00)
[2017-10-01] MEDS ORDERED: ONDANSETRON 2MG/ML, 2ML IVPush ONE (23:00)
[2017-10-01] MEDS ORDERED: ONDANSETRON 2MG/ML, 2ML ONE (23:14)
[2017-10-02] MEDS ORDERED: PROMETHAZINE 25 MG/ML, 1ML ONE (00:18)
[2017-10-02] MEDS ORDERED: PROMETHAZINE 25 MG/ML, 1ML IM ONE (00:30)
[2017-10-02 02:10] VITALS: BP 99/51
[2017-10-02] MEDS ORDERED: ENALAPRILAT 1.25 MG/ML, 2ML IVPush PRN (04:00)
[2017-10-02] MEDS ORDERED: BISACODYL 10 MG SUPP PR PRN (04:00)
[2017-10-02] MEDS ORDERED: POLYETHYLENE GLYCOL 17 GM PACKET PO PRN (04:00)
[2017-10-02] MEDS ORDERED: DOCUSATE 100 MG CAPSULE PO PRN (04:00)
[2017-10-02] MEDS ORDERED: HYDROmorphone 2 MG/ML, 1ML IV PRN (04:00)
[2017-10-02] MEDS ORDERED: hydrALAzine 20 MG/ML, 1ML IVPush PRN (04:00)
[2017-10-02] MEDS ORDERED: FLUTICASONE NASAL SPRAY 16GM NAS PRN (04:00)
[2017-10-02] MEDS ORDERED: morphine SULFATE 10 MG/ML, 1ML IVPush PRN (04:00)
[2017-10-02] MEDS ORDERED: ALBUTEROL SULFATE 2.5 MG/3 ML NPPB PRN (04:30)
[2017-10-02] MEDS: ONDANSETRON 2MG/ML, 2ML IVPush PRN ×3 (04:37→15:15)
[2017-10-02] MEDS: SODIUM CHLORIDE 0.9% 1,000 ML IV SCH ×2 (04:41→15:16)
[2017-10-02 04:58] LABS: TROPONIN I < 0.015 ng/mL (0.000-0.045)
[2017-10-02 05:04] LABS: FREE T4 (FREE THYROXINE) 1.65 ng/dL (0.76-1.46)
[2017-10-02] MEDS: HEPARIN 5,000 UNITS/ML, 1ML SQ SCH ×3 (05:11→20:04)
[2017-10-02] MEDS ORDERED: MAGNESIUM SULFATE PMX 2GM/50ML 50 ML IV ONE ×2 (05:30→16:00)
[2017-10-02 05:43] LABS: HEMOGLOBIN A1C 5.4 % (4.2-6.3)
[2017-10-02] MEDS ORDERED: WARF2TAB7 PO (05:56)
[2017-10-02 08:47] VITALS: BP 101/67
[2017-10-02] MEDS: CHOLECALCIFEROL 1,000 UNIT TABLET PO SCH (08:49)
[2017-10-02] MEDS: ASPIRIN 81 MG TABLET EC PO SCH (08:49)
[2017-10-02] MEDS: CALCIUM CITRATE 950 MG TABLET PO SCH (08:49)
[2017-10-02] MEDS: FLUTICASONE/VILANTEROL 200-25MCG/INH INH SCH (08:50)
[2017-10-02] MEDS: MULTIVITAMIN 1 TABLET PO SCH (08:50)
[2017-10-02] MEDS: FENOFIBRATE 54 MG TABLET PO SCH (08:50)
[2017-10-02] MEDS: LISINOPRIL 20 MG TABLET PO SCH (08:50)
[2017-10-02] MEDS: OXYcodone IR 5MG TABLET PO PRN ×2 (08:54→15:16)
[2017-10-02 10:21] LABS: TROPONIN I < 0.015 ng/mL (0.000-0.045)
[2017-10-02 11:53] LABS: INTERNATIONAL NORMALIZED RATIO 3.51 (0.93-1.1); PROTHROMBIN TIME 35.3 Seconds (9.6-11.5)
[2017-10-02 13:00] VITALS: BP 97/62
[2017-10-02 15:40] VITALS: BP 95/51
[2017-10-02 19:21] VITALS: BP 101/67
[2017-10-02] MEDS: ATORVASTATIN 40 MG TABLET PO SCH (20:04)
[2017-10-03 00:28] VITALS: BP 107/55
[2017-10-03] MEDS: SODIUM CHLORIDE 0.9% 1,000 ML IV SCH ×2 (00:30→09:58)
[2017-10-03] MEDS: HEPARIN 5,000 UNITS/ML, 1ML SQ SCH ×3 (03:03→21:05)
[2017-10-03 03:18] LABS: INTERNATIONAL NORMALIZED RATIO 2.63 (0.93-1.1); PROTHROMBIN TIME 26.6 Seconds (9.6-11.5)
[2017-10-03 03:19] LABS: BASOPHILS # (AUTO) 0.01 x10^3/uL (0-0.1); BASOPHILS % (AUTO) 0 % (0-1); EOSINOPHILS # (AUTO) 0.02 x10^3/uL (0-0.4); EOSINOPHILS % (AUTO) 1 % (1-7); LYMPHOCYTES # (AUTO) 1.61 x10^3/uL (1-3.4); LYMPHOCYTES % (AUTO) 49 % (22-44); MD NO; MEAN CORPUSCULAR HEMOGLOBIN 32.3 pg (27.0-34.8); MEAN CORPUSCULAR HGB CONC 33.8 g/dL (32.4-35.8); MEAN CORPUSCULAR VOLUME 95.7 fL (80-100); MEAN PLATELET VOLUME 9.4 fL (7.4-10.4); MONOCYTES # (AUTO) 0.14 x10^3/uL (0.2-0.8); MONOCYTES % (AUTO) 4 % (2-9); NEUTROPHILS # (AUTO) 1.49 x10^3/uL (1.8-6.8); NEUTROPHILS % (AUTO) 46 % (42-75); PLATELET COUNT 314 x10^3/uL (130-400); RED BLOOD COUNT 2.93 x10^6/uL (3.82-5.3); RED CELL DISTRIBUTION WIDTH 17.9 % (9.6-15.2)
[2017-10-03 03:25] LABS: ALBUMIN 2.8 g/dL (3.4-5.0); CHLORIDE 102 mmol/L (98-107)
[2017-10-03 03:30] LABS: ALANINE AMINOTRANSFERASE 22 U/L (12-78); ALKALINE PHOSPHATASE 43 U/L (45-117); ANION GAP 10 mmol/L (5-15); BILIRUBIN,TOTAL 0.7 mg/dL (0.2-1.0); CALCIUM 7.7 mg/dL (8.5-10.1); CHOL/HDL RATIO 2.4; CHOLESTEROL, TOTAL 110 mg/dL (140-239); CREATININE 1.02 mg/dL (0.55-1.02); HDL CHOL % 42 % (28-40); HDL CHOLESTEROL (DIRECT) 46 mg/dL (40-60); LDL CHOLESTEROL,CALCULATED 28 mg/dL (54-169); LDL/HDL RATIO 0.6 (0.5-3.0); TOTAL PROTEIN 5.6 g/dL (6.4-8.2); TRIGLYCERIDES 182 mg/dL (50-200); VLDL CHOLESTEROL 36 mg/dL (0-25)
[2017-10-03 07:31] VITALS: BP 113/54
[2017-10-03] MEDS: FENOFIBRATE 54 MG TABLET PO SCH (09:56)
[2017-10-03] MEDS: MULTIVITAMIN 1 TABLET PO SCH (09:56)
[2017-10-03] MEDS: LISINOPRIL 20 MG TABLET PO SCH (09:56)
[2017-10-03] MEDS: ASPIRIN 81 MG TABLET EC PO SCH (09:56)
[2017-10-03] MEDS: CHOLECALCIFEROL 1,000 UNIT TABLET PO SCH (09:57)
[2017-10-03] MEDS: CALCIUM CITRATE 950 MG TABLET PO SCH (09:57)
[2017-10-03] MEDS: FLUTICASONE/VILANTEROL 200-25MCG/INH INH SCH (12:40)
[2017-10-03 13:58] VITALS: BP 94/60
[2017-10-03] MEDS ORDERED: POTASSIUM CHLORIDE 20 MEQ TAB.ER.PRT PO ONE (14:00)
[2017-10-03 14:06] LABS: MICROSCOPIC INDICATED
[2017-10-03 14:07] LABS: CULTURE INDICATED? YES
[2017-10-03] MEDS: OXYcodone IR 5MG TABLET PO PRN ×2 (16:50→21:14)
[2017-10-03] MEDS ORDERED: WARFARIN 2 MG TABLET PO-COUM ONE (18:00)
[2017-10-03 18:44] VITALS: BP 103/65
[2017-10-03] MEDS: ATORVASTATIN 40 MG TABLET PO SCH (21:05)
[2017-10-04 03:58] VITALS: BP 114/71
[2017-10-04] MEDS: HEPARIN 5,000 UNITS/ML, 1ML SQ SCH ×3 (04:00→11:20)
[2017-10-04 06:00] LABS: INTERNATIONAL NORMALIZED RATIO 2.3 (0.93-1.1); PROTHROMBIN TIME 23.3 Seconds (9.6-11.5)
[2017-10-04 07:51] VITALS: BP 134/78
[2017-10-04] MEDS: ASPIRIN 81 MG TABLET EC PO SCH (09:00)
[2017-10-04] MEDS: OXYcodone IR 5MG TABLET PO PRN ×2 (09:06→15:22)
[2017-10-04] MEDS: FENOFIBRATE 54 MG TABLET PO SCH (09:07)
[2017-10-04] MEDS: LISINOPRIL 20 MG TABLET PO SCH (09:07)
[2017-10-04] MEDS: CALCIUM CITRATE 950 MG TABLET PO SCH (09:07)
[2017-10-04] MEDS: MULTIVITAMIN 1 TABLET PO SCH (09:07)
[2017-10-04] MEDS: CHOLECALCIFEROL 1,000 UNIT TABLET PO SCH (09:08)
[2017-10-04] MEDS: FLUTICASONE/VILANTEROL 200-25MCG/INH INH SCH (10:20)
[2017-10-04 13:47] VITALS: BP 95/59
[2017-10-04] MEDS ORDERED: WARFARIN 2 MG TABLET PO-COUM ONE (18:00)
== END 2017-10-04 15:50 | disposition hospice, home (50) | DRG 392 ==
LOC: ED 23:59 → EDIP 10-02 00:38 → 5SO 10-02 02:00 → 3NW 10-02 15:05
PROVIDERS: ADMIT Internal Medicine; ATTEND Family Medicine
DX: R11.2 Nausea with vomiting, unspecified (principal); C79.51 Secondary malignant neoplasm of bone; C78.00 Secondary malignant neoplasm of unspecified lung; E87.8 Other disorders of electrolyte and fluid balance, not elsewhere classified; E86.0 Dehydration; I71.2 Thoracic aortic aneurysm, without rupture; E87.1 Hypo-osmolality and hyponatremia; C56.9 Malignant neoplasm of unspecified ovary; E86.1 Hypovolemia; C57.7 Malignant neoplasm of other specified female genital organs; I35.1 Nonrheumatic aortic (valve) insufficiency; E78.00 Pure hypercholesterolemia, unspecified; E78.5 Hyperlipidemia, unspecified; G89.29 Other chronic pain; M54.9 Dorsalgia, unspecified; I10 Essential (primary) hypertension; J44.9 Chronic obstructive pulmonary disease, unspecified; R79.1 Abnormal coagulation profile; Z66 Do not resuscitate; Z79.01 Long term (current) use of anticoagulants; Z85.43 Personal history of malignant neoplasm of ovary; Z86.711 Personal history of pulmonary embolism; Z87.891 Personal history of nicotine dependence; I34.0 Nonrheumatic mitral (valve) insufficiency; Z88.6 Allergy status to analgesic agent
CPT/HCPCS: 36415; 71045; 80053; 80061; 81001; 83036; 83735; 83880; 84439; 84443; 84484; 85025; 85610; 85730; 87086; 93005; 96361; 96372; 96374; J1644; J2405; J2550; J3475; J7030